=== PATIENT | female | born 1960 ===

== ENCOUNTER 2018-04-23 05:50 | Day surgery (SDC) | payer OTHER ==
[~2018-04-23 05:50] MED LIST: ALBUTEROL SULFAT4 MG PO; ALL DAY ALLERGY10 M3 PO; CENTRUM WOMEN1 EACH PO; CITRACAL + D M1 EACH PO; COZAAR100 MG PO; POTASSIUM600 MG PO; SINGULAIR 10MG10 MG PO
[2018-04-23] MEDS ORDERED: TYLENOL EXTRA500 MG PO (09:02)
== END 2018-04-23 13:30 | disposition home or self-care (01) ==
LOC: CIR.AMB 05:50
DX: N85.01 Benign endometrial hyperplasia (principal); N84.0 Polyp of corpus uteri; N72 Inflammatory disease of cervix uteri

== ENCOUNTER 2018-05-28 11:00 | Inpatient (IN) | payer OTHER ==
[~2018-05-28] VITALS: Ht 157.5 cm; Wt 111.1 kg
[~2018-05-28 11:00] MED LIST changes: +TYLENOL EXTRA500 MG PO
[2018-06-06] MEDS ORDERED: CIPRO500 MG PO (07:29)
[2018-06-06] MEDS ORDERED: TYLENOL-CODEINE1 TA1 PO (07:29)
== END 2018-06-06 10:06 | DRG 743 ==
LOC: OB/GYN 06-04 05:50 → O/R 06-04 05:50 → SURH 06-04 11:00 → OB/GYN 06-04 15:48
PROVIDERS: Specialist
PROC: 0UT50ZZ Resection of Right Fallopian Tube, Open Approach (ICD-10-PCS; 2018-06-04)
PROC: 0UT00ZZ Resection of Right Ovary, Open Approach (ICD-10-PCS; 2018-06-04)
PROC: 0UT90ZZ Resection of Uterus, Open Approach (ICD-10-PCS; principal; 2018-06-04 14:00)
DX: D25.1 Intramural leiomyoma of uterus (principal); N72 Inflammatory disease of cervix uteri; N85.02 Endometrial intraepithelial neoplasia [EIN]